=== PATIENT | male | born 1980 | race Caucasian/White ===

== ENCOUNTER 2020-07-27 23:08 | Emergency (ER) | payer MEDICAID ==
[~2020-07-27] VITALS: Ht 154.9 cm; Wt 77.0 kg
[2020-07-28 01:46] VITALS: BP 156/88
== END 2020-07-28 01:46 | disposition home or self-care (01) ==
LOC: ER 23:08
DX: R20.0 Anesthesia of skin (principal); M54.2 Cervicalgia; I10 Essential (primary) hypertension; E11.9 Type 2 diabetes mellitus without complications
CPT/HCPCS: 72040; 99283